=== PATIENT | female | born 1985 | race Caucasian/White ===

== ENCOUNTER → 2017-08-23 | Outpatient (CLI) | payer OTHER, MEDICAID | LOC: HPND 07:44 | PROVIDERS: ATTEND Obstetrics & Gynecology | DX: O30.031 Twin pregnancy, monochorionic/diamniotic, first trimester (principal); Z3A.13 13 weeks gestation of pregnancy | CPT/HCPCS: 76801; 76802 ==

== ENCOUNTER → 2017-10-05 | Outpatient (CLI) | payer MEDICAID | LOC: HPND 08:52 | PROVIDERS: ATTEND Obstetrics & Gynecology | DX: O34.12 Maternal care for benign tumor of corpus uteri, second trimester (principal); O30.002 Twin pregnancy, unspecified number of placenta and unspecified number of amniotic sacs, second trimester | CPT/HCPCS: 76811; 76812; 76817 ==

== ENCOUNTER → 2017-10-19 | Outpatient (CLI) | payer MEDICAID | LOC: HPND 10:33 | PROVIDERS: ATTEND Obstetrics & Gynecology | DX: O30.032 Twin pregnancy, monochorionic/diamniotic, second trimester (principal); O34.12 Maternal care for benign tumor of corpus uteri, second trimester; O43.192 Other malformation of placenta, second trimester | CPT/HCPCS: 76817; 76825; 76827; 93325 ==

== ENCOUNTER → 2017-11-02 | Outpatient (CLI) | payer MEDICAID | LOC: HPND 07:22 | PROVIDERS: ATTEND Obstetrics & Gynecology | DX: O30.032 Twin pregnancy, monochorionic/diamniotic, second trimester (principal); O34.12 Maternal care for benign tumor of corpus uteri, second trimester | CPT/HCPCS: 76816; 76817 ==

== ENCOUNTER → 2017-11-16 | Outpatient (CLI) | payer MEDICAID | LOC: HPND 07:43 | PROVIDERS: ATTEND Obstetrics & Gynecology | DX: O43.192 Other malformation of placenta, second trimester (principal); O30.032 Twin pregnancy, monochorionic/diamniotic, second trimester | CPT/HCPCS: 76815; 76817 ==

== ENCOUNTER → 2017-11-30 | Outpatient (CLI) | payer MEDICAID | LOC: HPND 07:31 | PROVIDERS: ATTEND Obstetrics & Gynecology | DX: O30.033 Twin pregnancy, monochorionic/diamniotic, third trimester (principal); O43.193 Other malformation of placenta, third trimester; O99.843 Bariatric surgery status complicating pregnancy, third trimester | CPT/HCPCS: 76816 ==

== ENCOUNTER → 2017-12-14 | Outpatient (CLI) | payer MEDICAID | LOC: HPND 07:40 | PROVIDERS: ATTEND Obstetrics & Gynecology | DX: O30.033 Twin pregnancy, monochorionic/diamniotic, third trimester (principal); O43.193 Other malformation of placenta, third trimester; O99.843 Bariatric surgery status complicating pregnancy, third trimester | CPT/HCPCS: 76815 ==

== ENCOUNTER → 2017-12-28 | Outpatient (CLI) | payer MEDICAID | LOC: HPND 08:12 | PROVIDERS: ATTEND Obstetrics & Gynecology | DX: O34.13 Maternal care for benign tumor of corpus uteri, third trimester (principal); O30.032 Twin pregnancy, monochorionic/diamniotic, second trimester; O43.193 Other malformation of placenta, third trimester | CPT/HCPCS: 76816 ==